=== PATIENT | female | born 1930 | race Caucasian/White ===

== ENCOUNTER → 2018-11-05 13:13 | Day surgery (SDC) | payer MEDICARE ==
[~2018-11-05 13:13] MED LIST: Buffered Lidocaine 0.9% SYRIN* 5 ML/SYR SYRINGE INTRADERM ONE; Lactated Ringers 1000 ML Bag* 1,000 ML IV SCH; Midazolam* 1 MG/ML 5 ML VIAL (5 MG) ONE; Naloxone* 0.4 MG/ML 1 ML VIAL IV PRN; Ondansetron INJ* 2 MG/ML VIAL IV PRN; Propofol* 10 MG/ML 20 ML BTL ONE
[2018-11-05 15:39] VITALS: BP 166/77
--- NOTE | 2018-11-05 20:26 | PRO ---
CC: Dr. Celia Munoz * COLONOSCOPY REPORT: DATE OF PROCEDURE: 11/05/18 - ENDO PRIMARY CARE PHYSICIAN: Dr. Celia Munoz at [facility]. INDICATION FOR PROCEDURE: Abnormal CAT scan, positive FIT test. PROCEDURE PERFORMED: Complete colonoscopy to the cecum. MEDICATIONS GIVEN: Please see Anesthesia record. DESCRIPTION OF PROCEDURE: After the colonoscopy procedure including the risks, benefits, and alternatives with the risks not limited to perforation, surgery, missed lesions, and/or were explained to the patient, written informed consent was obtained. Anesthesia was given by the Anesthesia Service and rectal exam was performed. The rectal exam was unremarkable. The adult Olympus colonoscope was initially inserted to about 30 cm, where there was quite fixed resistance and acute angulation of the sigmoid colon. Despite multiple position changes, I was not able to advance through this area. I then switched to a pediatric colonoscope, and with multiple position changes and assistance with pressure from the nursing staff, we were able to facilitate passage through the sigmoid colon and we were able to rapidly intubate the cecum at that point. The preparation was good. The cecum was carefully inspected and normal in appearance. The terminal ileal valve was identified and normal in appearance. Over the next 10 minutes, the scope was carefully withdrawn, inspecting the mucosa. No mucosal abnormalities were seen. Her colon is quite tortuous and fixed in the sigmoid portion with quite severe diverticulosis coli. The scope was then removed through the rectum. Direct views were normal and retroflexion views were grossly normal as well with grade 1 internal hemorrhoids. The scope was then removed from the patient. She tolerated the procedure well. She returned to the recovery room in stable condition. IMPRESSION: 1. Complete colonoscopy to the cecum. 2. Tortuous and fixed sigmoid colon. 3. Severe left-sided diverticulosis coli. 4. Grade 1 internal hemorrhoids. RECOMMENDATIONS: The thickening noted on CAT scan in the sigmoid colon is just layering from the diverticulosis and tortuosity. I would recommend adding fiber to her diet. No mucosal lesions were seen today. I would recommend against further colonoscopies unless gross symptoms occur. She did have on the CAT scan a 1 cm lesion in the abdominal fat that was concerning for possible carcinoid. She gives no features of carcinoid syndrome. I did order a 5-HIAA urine test and will follow up on the results of that. If that is negative, we would likely consider MR enterography to further evaluate. [id number]/[facility] #: [id number] MTDD
== END | disposition home or self-care (01) ==
LOC: ENDO 13:13 → OR 13:13
PROVIDERS: ATTEND Internal Medicine Gastroenterology
DX: R19.5 Other fecal abnormalities (principal); K57.30 Diverticulosis of large intestine without perforation or abscess without bleeding; K62.5 Hemorrhage of anus and rectum; K63.89 Other specified diseases of intestine; K64.0 First degree hemorrhoids; R93.3 Abnormal findings on diagnostic imaging of other parts of digestive tract; R63.4 Abnormal weight loss; Z79.82 Long term (current) use of aspirin; Z88.8 Allergy status to other drugs, medicaments and biological substances; Z88.1 Allergy status to other antibiotic agents; Z88.0 Allergy status to penicillin; Z88.2 Allergy status to sulfonamides; Z88.5 Allergy status to narcotic agent; Z68.28 Body mass index [BMI] 28.0-28.9, adult
CPT/HCPCS: J2250; J2704

== ENCOUNTER 2019-09-03 05:40 | Inpatient (IN) | payer MEDICARE ==
[~2019-09-03 05:40] MED LIST changes: -Buffered Lidocaine 0.9% SYRIN* 5 ML/SYR SYRINGE INTRADERM ONE; +Buffered Lidocaine 1% SYRIN* 1 ML/SYRINGE INTRADERM ONE; +GENTAMICIN ADULT IVPB SCH; -Lactated Ringers 1000 ML Bag* 1,000 ML IV SCH; -Midazolam* 1 MG/ML 5 ML VIAL (5 MG) ONE; +NS 0.9% IVPB SCH; -Naloxone* 0.4 MG/ML 1 ML VIAL IV PRN; -Ondansetron INJ* 2 MG/ML VIAL IV PRN; -Propofol* 10 MG/ML 20 ML BTL ONE
--- OUTSIDE RECORDS SUMMARY | 2019-09-03 05:45 | XMS REPORT | Continuity of Care Document ---
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 No Information Available Social History Type Date Description Comments Sex Unknown ETOH Use Denies alcohol use Tobacco Use Start: Unknown Patient has never smoked Recreational Drug Use Denies Drug Use Smoking Status Reviewed: 08/04/19 Patient has never smoked Exercise Type/Frequency Exercises sporadically Allergies, Adverse Reactions, Alerts Active Allergies Reaction Severity Comments Date Bystolic 02/08/2019 Cardizem 02/08/2019 Celebrex 02/08/2019 Cipro 02/08/2019 Codeine 02/08/2019 Hydrochlorothiazide 02/08/2019 Metoprolol Tartrate 02/08/2019 Morphine Sulfate 02/08/2019 Penicillin V Potassium 02/08/2019 Sulfadiazine 02/08/2019 Metoprolol 02/08/2019 Vancomycin 02/08/2019 Midazolam 02/08/2019 Medications Active Medications SIG Qnty Indications Ordering Provider Date Advil as needed Unknown 200mg Tablets Immunizations Description No Information Available Vital Signs Date Vital Result Comment 08/04/2019 3:03pm Heart Rate 84 /min Respiratory Rate 16 /min Body Temperature 97.4 F 02/10/2019 3:12pm Height 66 inches 5'6" Weight 163.00 lb Heart Rate 72 /min BP Systolic 138 mmHg BP Diastolic 80 mmHg Respiratory Rate 16 /min Body Temperature 98.7 F BMI (Body Mass Index) 26.3 kg/m2 Results Description No Information Available Procedures Date Code Description Status 11/05/2018 80547272 Colonoscopy Completed Medical Devices Description No Information Available Encounters Type Date Location Provider Dx Diagnosis Office Visit [facility] Digna Del Angel MD R19.00 Intra- abd and 3:15p [facility] pelvic swelling, mass and lump, unsp site R93.3 Abnormal findings on dx imaging of prt digestive tract Assessments Date Code Description Provider 08/04/2019 R19.00 Intra-abdominal and pelvic swelling, mass and lump, Digna Del Angel MD unspecified site 02/23/2019 R19.00 Intra-abdominal and pelvic swelling, mass and lump, Digna Del Angel MD unspecified site 02/10/2019 R19.00 Intra-abd and pelvic swelling, mass and lump, unsp Digna Del Angel MD site 02/10/2019 R93.3 Abnormal findings on dx imaging of prt digestive Digna Del Angel MD tract Plan of Treatment Future Appointment(s):09/30/2019 7:30 am - Noel Arias MD, FACS at [facility]08/04/2019 - Digna Del Angel, MDR19.00 Intra-abdominal and pelvic swelling, mass and lump, unspecified siteFollow up:We will schedule surgery for you, which will be a diagnostic laparoscopy, possible exploratory laparotomy, possible mesenteric mass excision and possible bowel resection. Please return to see me 2 weeks after surgery for a post operative visit. Functional Status Description No Information Available Mental Status Description No Information Available Referrals Description No Information Available
--- OUTSIDE RECORDS SUMMARY | 2019-09-03 05:45 | XMS REPORT ---
:1930 Author Organization [facility] Address [address] [place] [address] Care Team Providers Name Role Phone Christina Hong Unavailable Unavailable PROBLEMS Type Condition ICD9-CM Code DOS07-DW Code Onset Condition SNOMED Code Dates Status Problem Preventive V58.62 Active 003817194 antibiotic ALLERGIES Substance Reaction Event Type Date Status cardizem Unknown Non Drug Allergy Jun, Active hystalic Unknown Non Drug Allergy Jun, Active sulfa Unknown Non Drug Allergy Jun, Active Penicillin Unknown Non Drug Allergy Jun, Active vancomycin Unknown Non Drug Allergy Jun, Active codeine Unknown Non Drug Allergy Jun, Active Morphin Unknown Non Drug Allergy Jun, Active ENCOUNTERS Encounter Location Date Diagnosis [address], [place] [address], [place] [address] [facility] [address], [place] [address] [facility] [address] [place] [address] [facility] [address] [place] [address] [facility] [address] [place] [address] [place] [address] [place] [facility] [place] [address] [place] [address] [facility] [address] [place] [address] Leonico [place] [facility] [address] [facility] [place] [facility] [place] [address] [facility] [address] [place] [address] [facility] [address] [facility] [place] [facility] [place] [address] [facility] [address] [place] [address] [facility] [address], [place] [address] [facility] [address] [place] [address] [facility] [address] [place] [address] [place] [address] [facility] [address] [place] [address] [facility] [address], Apr, [place] [address] [address], [place] [address], [place] [address], [place] [address] IMMUNIZATIONS No Known Immunizations SOCIAL HISTORY Never Assessed REASON FOR REFERRAL FUNCTIONAL STATUS PLAN OF CARE Activity Details Follow Up #11comp Reason: VITAL SIGNS MEDICATIONS Medication Instructions Dosage Frequency Start Date End Date Duration Status Hydrochlorothiazi Not-Taking de-25 mg Clindamycin HCl Active Multivitamin Active Aspirin Adult Low Active Dose PROCEDURES Procedure Date Ordered Result Body Site Caries Risk Assess and Doc High Risk Jul 13, 2019 PROPHYLAXIS - ADULT 13yrs and older Jul 13, 2019 RESULTS No Results REASON FOR VISIT r/s, Recare/ex MEDICAL (GENERAL) HISTORY Type Description Date Medical History 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 Per her Orthopedic DrGaetano she should premedicate for her life time prior to dental visits Medical History High blood pressure Medical History Disc Degeneration Surgical History hip surgery 2003 Surgical History R Knee Surgery 2010 Surgical History L knee Surgery 2011 [facility] Surgical History Caterascs Unknown Surgical History extensive foot Surgery 2009 Hospitalization History from [facility]
--- OUTSIDE RECORDS SUMMARY | 2019-09-03 05:45 | XMS REPORT ---
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 292107268 antibiotic ALLERGIES No Information ENCOUNTERS Encounter Location Date Diagnosis [facility] [address], [place] [address] [facility] [address], [place] [address] [facility] [address], [place], [facility] [facility] [address], [place] [facility] [facility] [address], [place], [facility] [facility] [address], [place], [facility] [facility] [address] [place] [address] [facility] [address] [facility] [address], [place] [address] [facility] [address], [place], [facility] [facility] [address], [place] [address] [facility] [address] [facility] [place], [place] [address] [facility] [address] [place] [address] [place], [place] [address] [facility] [address], [place] [address], [place] [address], [place] [address] [place] [address] [facility] [address], [place] [address] [facility] [address], [place] [address], Apr, [place] [address] [address], [place] [address], [place] [address], [place] [address] IMMUNIZATIONS No Known Immunizations SOCIAL HISTORY Never Assessed REASON FOR REFERRAL FUNCTIONAL STATUS PLAN OF CARE VITAL SIGNS MEDICATIONS Medication Instructions Dosage Frequency Start Date End Date Duration Status Aspirin Adult Low Active Dose Clindamycin HCl Active Hydrochlorothiazi Not-Taking de-25 mg Multivitamin Active PROCEDURES Procedure Date Ordered Result Body Site PERIODIC ORAL EXAMINATION Jul 13, 2019 RESULTS No Results REASON FOR VISIT Periodic exam MEDICAL (GENERAL) HISTORY Type Description Date Medical History 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 Per her Orthopedic Dr. she should premedicate for her life time prior to dental visits Medical History High blood pressure Medical History Disc Degeneration Surgical History hip surgery 2003 Surgical History R Knee Surgery 2010 Surgical History L knee Surgery 2011 Surgical History [facility] 1990 Surgical History Caterascs Unknown Surgical History extensive foot Surgery 2009 Hospitalization History from [facility]
[2019-09-03] MEDS ORDERED: Lactated Ringers 1000 ML Bag* 1,000 ML IV SCH (06:00)
[2019-09-03] MEDS ORDERED: Clindamycin 900 MG/D5W BAG(*) 900 MG/50 ML BAG IVPB ONE (06:23)
[2019-09-03] MEDS ORDERED: Buffered Lidocaine 1% SYRIN* 1 ML/SYRINGE INTRADERM ONE (06:23)
[2019-09-03] MEDS ORDERED: Lidocaine 2% PF* 10 ML AMP ONE (07:13)
[2019-09-03] MEDS ORDERED: Remifentanil* 2 MG VIAL ONE (07:13)
[2019-09-03] MEDS ORDERED: Rocuronium* 10 MG/ML VIAL ONE (07:13)
[2019-09-03] MEDS ORDERED: Propofol* 10 MG/ML 20 ML BTL ONE (07:13)
[2019-09-03] MEDS ORDERED: Bupivacaine 0.25% SDV PF* 10 ML VIAL INJ ONE (07:16)
[2019-09-03] MEDS ORDERED: EPHEDrine (Pressors)* 50 MG/ML VIAL ONE (08:07)
[2019-09-03] MEDS ORDERED: Dexamethasone IV* 4 MG/ML 1 ML (4 MG) ONE (08:07)
[2019-09-03] MEDS ORDERED: HYDROmorphone INJ1* 1 MG/ML SYRINGE ONE ×2 (08:08→10:56)
[2019-09-03] MEDS ORDERED: Acetaminophen IV 1GM/100ML * 100 ML ONE (08:39)
[2019-09-03] MEDS ORDERED: Ondansetron INJ* 2 MG/ML VIAL IV PRN (09:18)
[2019-09-03] MEDS ORDERED: PROCHLORPERAZINE INJ 5 MG/ML 2 ML VIAL IV PRN (09:18)
[2019-09-03] MEDS ORDERED: diPHENhydraMINE IV* 50 MG/ML 1 ml VIAL (BENADRYL) IV PRN (09:18)
[2019-09-03] MEDS ORDERED: Naloxone* 0.4 MG/ML 1 ML VIAL IV PRN (09:18)
[2019-09-03] MEDS ORDERED: Glycopyrrolate IV* 0.2 MG/ML 1 ML VIAL ONE (10:06)
[2019-09-03] MEDS ORDERED: Neostigmine Methylsulfate* 3 MG/3 ML SYRINGE ONE (10:06)
[2019-09-03] MEDS ORDERED: Ondansetron INJ* 2 MG/ML VIAL ONE (10:07)
[2019-09-03] MEDS ORDERED: Metoprolol Tartrate IV* 1 MG/ML 5 ML VIAL ONE ×2 (10:12→10:30)
--- NOTE | 2019-09-03 10:36 | BRIEFOPN ---
Brief Operative/Procedure Note - Operation Details Pre-Op Diagnosis: mesenteric mass Post-Op Diagnosis: small bowel and mesenteric mass Procedures: diagnostic laparoscopic, lap assisted small bowel resection Surgeon(s)/Proceduralists: Ramy Bermudez Anesthesia: GETA Findings: distended, congested distal ileum mass, mesenteric mass Complications: none
[2019-09-03] MEDS ORDERED: HYDROmorphone INJ* 0.5 MG/0.5 ML SYRINGE IV SLOW PU PRN (10:40)
[2019-09-03] MEDS: HYDROmorphone INJ1* 1 MG/ML SYRINGE IV PRN ×5 (10:57→12:22)
[2019-09-03] MEDS: Ketorolac INJ* 15 MG/ML 1 ML VIAL IV PUSH SCH ×3 (11:00→22:19)
[2019-09-03] MEDS: Lactated Ringers 1000 ML Bag* 1,000 ML IV SCH (13:04)
[2019-09-03] MEDS ORDERED: HYDROmorphone INJ* 0.5 MG/0.5 ML SYRINGE ONE (13:40)
--- NOTE | 2019-09-03 13:40 | OP ---
CC: Dr. Lam Torres * DATE OF OPERATION: 09/03/19 - ROOM #339 DATE OF : 32 SERVICE: General Surgery SURGEON: Digna Del Angel MD RN PRIVATE DUTY: Ramy Austin MD ANESTHESIOLOGIST: Rosalva Peters MD ANESTHESIA: General endotracheal anesthesia. PRE-OP DIAGNOSIS: Mesenteric mass. POST-OP DIAGNOSIS: Mesenteric and small bowel mass. OPERATIVE PROCEDURE: Diagnostic laparoscopy and laparoscopic assisted small bowel resection. ESTIMATED BLOOD LOSS: Minimal, less than 10 cc. INTRAOPERATIVE FINDINGS: In the distal ileum there was a long segment of distended hyperemic purplish appearing bowel with a mass identified. The mesentery was tethered posteriorly and contained enlarged, matted lymph nodes. SPECIMENS: Small bowel and mesenteric mass. INDICATIONS FOR SURGERY: Ms. Cheema is a very pleasant 89-year-old female who approximately 1 year ago had incidental finding of a calcified mesenteric mass on the CT scan that has been performed for a acute diverticulitis. She was found during her subsequent evaluation to have mildly elevated Chromogranin A but a normal 24 hour urine 5 HIAA. She underwent IR guided biopsy of the mass but the results were non diagnostic. A colonoscopy showed only diverticulosis and no colonic masses. She was seen by me earlier in this year, but at that time declined surgery since she was feeling fairly well. I saw her last month after serial imaging showed a slight increase in size of the mesenteric mass and some mucosal thickening of a segment of small bowel. She was also having persistent chronic diarrhea as well as intermittent flushing and intermittent abdominal pain. 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 She understood that the risks included but were not limited to bleeding, infection, injury to nearby structures, the possibility of anastomotic leak and general systemic complications from the perioperative period. She understood the alternatives and benefits as well, she wished to proceed with surgery. DESCRIPTION OF PROCEDURE: The patient was brought back to the operating room and placed on the operating table in the supine position. General endotracheal anesthesia was induced and Dr. Peters placed a right arterial line for hemodynamic monitoring. The patient had a Hargrove catheter placed. Her left arm was tucked and her abdomen was prepped and draped in normal sterile fashion. Prior to beginning the procedure, a time-out was performed verifying the patient 's name, date of , and the procedure to be performed. Next, a 0.25% Marcaine was infiltrated in left upper quadrant. A small incision was made at Gregory's point using an 11 blade and then the Veress needle was advanced into the abdominal wall. A saline drop test was performed that confirmed that the Veress needle was intraabdominal and insufflation was then obtained to 15 mmHg. Next, a small 5 mm incision was made in the left upper quadrant and the abdomen was entered using the Optiview technique and a 5 mm trocar. Once the abdomen was entered with the 5 mm trocar, a general inspection of the abdominal cavity showed that there was no injury that was made upon entry. The Veress needle was noted in place and was removed. Next, 2 additional 5 mm trocars were placed under direct visualization after administering local anesthesia, one was placed just above the umbilicus and another was placed in the left lower quadrant. A general inspection of the abdominal cavity showed immediately that there was a congested, purplish, distended loop of bowel in the anterior abdomen. This was clearly the abnormal segment of bowel that was seen on her last CT scan. She had had a prior cholecystectomy. She did not have any gross mesenteric or peritoneal masses. The cecum was identified. The appendix appeared to be grossly normal and the terminal ileum was then identified and then the bowel was run laparoscopically towards the ligament of Treitz. The abnormal small bowel was encountered in the distal ileum. There was clearly a small bowel mass in the area where the bowel seem to be tethered to the mesentery. The decision was then made to extract the bowel, then perform a bowel resection, and to run the bowel more thoroughly using direct palpation. A small periumbilical incision was made. The skin was divided down to the subcutaneous tissue. The midline fascia was identified and divided and the incision was carried approximately 2 cm above and below the umbilicus. A large wound protector was placed in the abdomen and the abnormal bowel was extracted with some difficulty given how large the small bowel mesenteric mass was. But eventually the entire abnormal bowel with its adjacent tethered mesentery was delivered out of the abdomen and examined very carefully. There was an area of possible desmoplastic reaction around the mesentery. It did appear to have enlarged palpable lymph nodes at this area and the small bowel mass was easily palpable. At this point, the small bowel resection was performed. The distal and proximal ends of the resection were selected at sites where the bowel appeared to be grossly normal. At the distal site, a window was made in the mesentery and an 80 mm endo-BARBI blue load stapler was used to staple the small bowel. In a similar fashion, the proximal site was selected and an additional 80 mm endo-BARBI stapler was used to staple across the site. Next, the mesentery was divided with great care, given how deep the mesenteric mass and enlarged lymph node seem to extend posteriorly towards the base of the mesentry. The Impact LigaSure was used to divide the mesentery down to a pedicle point where the bulkiest lymph nodes were contained. At this point, the mesentery was clamped with the Michelle and the mesentery was completely divided and the small bowel and mesenteric mass were handed off as specimen. The mesentery was oversewn using a 3-0 silk suture and attention was then turned towards the remaining small bowel. There was a slightly dusky area at the proximal small bowel that did improve however, approximately 2cm of additional bowel was resected at the proximal and distal ends. Next, the bowel was run in its entirety by palpation. The distal bowel was palpated and there were no intraluminal masses identified. The appendix was also visualized together and appeared to be completely normal. The proximal bowel was run all the way to the terminal ileum and there were no palpable small bowel masses. Attention was then turned towards performing the small bowel anastomosis in the standard [id number] and functional end-to-end anastomosis. The proximal distal ends were aligned and the mesentery was confirmed to be straight with no twist in it. The back wall of the future anastomosis was oversewn using a 3-0 silk suture. Two small enterotomies were made and another 80 mm Endo BARBI stapler was used to create the common channel. The common enterotomy was then closed using an additional 80 mm Endo BARBI blue load. The staple lines were oversewn using running 3-0 silk sutures. The large mesenteric defect was closed using a running 3- 0 Vicryl suture. The anastomosis was palpated that was widely patent before closure. The staple line was examined and was hemostatic. At this point, the small bowel was placed back into the abdominal cavity. The wound protector was removed and attention was turned towards closure. Of note, after performing the bowel anastomosis the dirty instruments were removed and all of our gloves were changed. There was a small defect in the umbilical stalk that was closed using a 3-0 Vicryl suture and then at this point, the fascia was closed using running 0 PDS sutures and then the skin was closed using agapito. The 2 left lateral 5 mm laparoscopic incisions were closed using 4-0 Monocryl suture after removing the trocars. Sterile dressing was then placed. The patient's anesthesia was reversed. Her Hargrove catheter was removed and she was taken to the PACU in stable condition. At the end of the case all counts were correct and I was present during the entirety of the case. [id number] #: [id number] MTDOpal
[2019-09-03] MEDS: Ondansetron INJ* 2 MG/ML VIAL IV PRN (17:09)
[2019-09-03] MEDS: Heparin VIAL(*) 5000 UNITS/ML VIAL (FIVE THOUSAND) SUBCUT SCH (22:20)
[2019-09-04] MEDS: Lactated Ringers 1000 ML Bag* 1,000 ML IV SCH (02:10)
[2019-09-04] MEDS: Ketorolac INJ* 15 MG/ML 1 ML VIAL IV PUSH SCH ×2 (04:43→10:29)
[2019-09-04] MEDS: Ondansetron INJ* 2 MG/ML VIAL IV PRN (05:02)
[2019-09-04 05:50] LABS: ABS Lymphocytes 1.5 10^3/ul (1.0-4.8); ABS Neutrophils 8.7 10^3/ul (1.5-7.7); Hematocrit 37 % (35-47); Lymphocyte % 13.7 %; Mean Corpuscular HGB Conc 33 g/dL (31-36); Mean Corpuscular Hemoglobin 30 pg (27-31); Mean Corpuscular Volume 91 fL (80-97); Mean Platelet Volume 8.9 fL (7.4-10.4); Nucleated Red Blood Cells % 0.1; Platelet Count 188 10^3/uL (150-450); Red Blood Count 4.07 10^6 /uL (3.70-4.87); Red Cell Distribution Width 14 % (10-15); White Blood Count 11.2 10^3/uL (3.5-10.8)
[2019-09-04 06:06] LABS: Calcium 9.1 mg/dL (8.6-10.3); EGFR African American 63.3 (>60); EGFR Non-African American 52.3 (>60); Potassium 4.2 mmol/L (3.5-5.0)
[2019-09-04] MEDS: Heparin VIAL(*) 5000 UNITS/ML VIAL (FIVE THOUSAND) SUBCUT SCH ×2 (08:28→20:50)
--- NOTE | 2019-09-04 11:58 | PN ---
Progress Note - Progress Note Date of Service: 09/04/19 SOAP: Subjective: Pt seen and examined. Feeling well. appetite. no flatus, some burping Pt has voided w/o difficulty Objective: Temp Pulse Resp BP Pulse Ox 98.6 F 65 16 110/47 96 09/04/19 11:36 09/04/19 11:36 09/04/19 11:36 09/04/19 11:36 09/04/19 11:36 Intake & Output 09/03/19 09/04/19 09/04/19 22:59 06:59 14:59 Intake Total 0 990 Balance 0 990 a and o x3 lungs clear abdo: soft/ ND/ incisional tenderness, dressing intact, no redness ext wnl labs noted Assessment: POD 1 SB resection. HD stable Plan: ice chips only for now OOB Incentive spiromter
[2019-09-04] MEDS: D5W 1/2 NS 1000 ML BAG* 1,000 ML IV SCH (12:17)
[2019-09-04] MEDS ORDERED: Ibuprofen TAB* 400 MG PO PRN (14:58)
[2019-09-04] MEDS ORDERED: diPHENhydraMINE IV* 50 MG/ML 1 ml VIAL (BENADRYL) IV ONE (15:00)
[2019-09-05 01:30] LABS: Urine Appearance Clear; Urine Bacteria 1+ (Absent); Urine Bilirubin Negative (Negative); Urine Blood 1+ (Negative); Urine Color Yellow; Urine Glucose Negative (Negative); Urine Ketones Negative (Negative); Urine Nitrite Negative (Negative); Urine Protein Negative (Negative); Urine Red Blood Cell Trace(0-2/hpf) (Absent); Urine Squamous Epithelial Cell Present (Absent); Urine Urobilinogen Negative (Negative); Urine White Blood Cell Trace(0-5/hpf) (Absent)
[2019-09-05] MEDS: D5W 1/2 NS 1000 ML BAG* 1,000 ML IV SCH (01:33)
[2019-09-05] MEDS: Heparin VIAL(*) 5000 UNITS/ML VIAL (FIVE THOUSAND) SUBCUT SCH ×2 (08:55→21:31)
--- NOTE | 2019-09-05 10:20 | PN ---
Progress Note - Progress Note Date of Service: 09/05/19 SOAP: Subjective: Pt seen and examined. Feeling well. appetite. some flatus, some burping Pt has voided multiple times overnight. UA pos blood, neg nitrates Objective: Temp Pulse Resp BP Pulse Ox 99.3 F 79 16 145/55 96 09/05/19 07:24 09/05/19 07:24 09/05/19 08:00 09/05/19 07:24 09/05/19 07:24 Intake & Output 09/04/19 09/05/19 09/05/19 22:59 06:59 14:59 Intake Total 990 Output Total 150 90 Balance -150 900 urione likely not fully documented a and o x3 lungs clear abdo: soft/ ND/ NT, dressing removed. mild redness at umbilicus, good BS ext wnl no new labs Assessment: POD 2 SB resection. HD stable Plan: Full liquid OOB Incentive spirometer d/c planning
[2019-09-05] MEDS: Bacitracin OINTMENT* 0.5% 0.5 oz TUBE TOPICAL SCH (12:46)
[2019-09-05] MEDS: Ondansetron INJ* 2 MG/ML VIAL IV PRN (23:07)
[2019-09-06 05:10] LABS: ABS Eosinophils 0.2 10^3/ul (0-0.6); ABS Lymphocytes 1.5 10^3/ul (1.0-4.8); ABS Monocytes 0.9 10^3/ul (0-0.8); ABS Neutrophils 4.6 10^3/ul (1.5-7.7); Eosinophil % 2.7 %; Hematocrit 33 % (35-47); Lymphocyte % 20.3 %; Mean Corpuscular HGB Conc 34 g/dL (31-36); Mean Corpuscular Hemoglobin 30 pg (27-31); Mean Corpuscular Volume 90 fL (80-97); Mean Platelet Volume 8.9 fL (7.4-10.4); Nucleated Red Blood Cells % 0.1; Platelet Count 151 10^3/uL (150-450); Red Blood Count 3.61 10^6 /uL (3.70-4.87); Red Cell Distribution Width 14 % (10-15); White Blood Count 7.2 10^3/uL (3.5-10.8)
[2019-09-06 05:32] LABS: BUN/Creatinine Ratio 14.3 (8-20); Calcium 8.9 mg/dL (8.6-10.3); EGFR African American 85.6 (>60); EGFR Non-African American 70.7 (>60); Magnesium 1.4 mg/dL (1.9-2.7); Phosphorus 3.1 mg/dL (2.5-5.0); Potassium 3.6 mmol/L (3.5-5.0)
[2019-09-06 07:57] VITALS: BP 131/47
[2019-09-06] MEDS: Heparin VIAL(*) 5000 UNITS/ML VIAL (FIVE THOUSAND) SUBCUT SCH (08:55)
[2019-09-06] MEDS: Bacitracin OINTMENT* 0.5% 0.5 oz TUBE TOPICAL SCH (08:55)
--- NOTE | 2019-09-06 09:12 | PN ---
Progress Note - Progress Note Date of Service: 09/06/19 Note: S: POD #3. Doing well. Denies pain ("sore" only). Agnes full liqs. Passing flatus ; no BM yet. Ambulating. O: Vital Signs - 8 hr 09/06/19 09/06/19 09/06/19 03:52 07:56 08:00 Temperature 98.6 F 98.9 F Pulse Rate 77 87 Respiratory 16 16 18 Rate Blood Pressure 144/60 131/47 (mmHg) O2 Sat by Pulse 94 93 Oximetry Intake and Output Last 24 Hours 09/04/19 09/05/19 09/06/19 09/07/19 06:59 06:59 06:59 06:59 Intake Total 2240 1740 1118 300 Output Total 100 240 650 150 Balance 2140 1500 468 150 Intake: IV Fluids 2240 1740 638 CLINDAMYCIN 900MG 50 D5W 1/2 NS 990 638 GENTAMYCIN 312MG 100 LR 2090 750 Oral 0 480 300 Output: Urine 240 650 150 Hargrove 100 Other: Estimated Void Small Small Small Medium # Voids 1 1 1 Gen: sitting at edge of bed; appears comfortable Heart: reg Lungs: clear ant and to bases Abd: lap sites ok; umb incision w/ small amt of erythema at right side w/ possible early blistering (skin burn vs tape?); nontender; soft. A: s/p lap assisted SB rsxn (path pend), doing well P: discussed w/ Dr. Bailey. Ready for d/c home. She will continue to advance diet gradually at home over the next couple of days. Office f/u 1 wk (she will call). Wound care and activity instructions reviewed.
--- NOTE | 2019-09-06 11:32 | DS ---
CC: Dr. Celia Munoz* DATE OF ADMISSION: 09/03/2019. DATE OF DISCHARGE: 09/06/2019. ATTENDING SURGEON: Dr. Digna Del Angel * (dictated by BLAKE Rizvi). HOSPITAL COURSE: Please refer to admission history and physical and operative note for details. The patient was taken to the operating room on 09/03/2019 and underwent laparoscopic assisted small bowel resection. Pathology is still pending. She has had an uneventful postoperative course and as of the day of discharge is tolerating full liquids and having little to no pain. She has not required any analgesics in the past 24 hours. For exam, see separate progress note from the same date. She is deemed ready for discharge. Instructions were reviewed regarding wound care, diet and activity. There is a small area of erythema to the right of the umbilical incision which may have been from either tape or skin burn. This will be monitored by her daughter who will apply over- the-counter antibiotic ointment once a day. She will return in the office in approximately one week with Dr. Del Angel and they will call for that appointment. She is discharged to home in good condition. BLAKE RIZVI [id number]/[facility] #: [id number] MTDOpal
== END 2019-09-06 10:20 | disposition home or self-care (01) | DRG 349 ==
LOC: AA 05:40 → SSU 10:40
PROVIDERS: ADMIT Surgery; ATTEND Surgery
PROC: 0DBB4ZZ Excision of Ileum, Percutaneous Endoscopic Approach (ICD-10-PCS; principal; 2019-09-03 07:30)
DX: R19.09 Other intra-abdominal and pelvic swelling, mass and lump (principal); I10 Essential (primary) hypertension; K57.90 Diverticulosis of intestine, part unspecified, without perforation or abscess without bleeding; Z96.653 Presence of artificial knee joint, bilateral; Z96.642 Presence of left artificial hip joint; R19.7 Diarrhea, unspecified; K44.9 Diaphragmatic hernia without obstruction or gangrene; F41.9 Anxiety disorder, unspecified; Z79.1 Long term (current) use of non-steroidal anti-inflammatories (NSAID); Z88.0 Allergy status to penicillin; Z88.5 Allergy status to narcotic agent; Z88.1 Allergy status to other antibiotic agents; Z88.2 Allergy status to sulfonamides; Z88.8 Allergy status to other drugs, medicaments and biological substances; Z80.9 Family history of malignant neoplasm, unspecified
CPT/HCPCS: 36415; 80048; 81003; 81015; 83735; 84100; 85025; 87086; 88307; 88309; 88341; 88342; 88360; A9270-GY; C1776; J1100; J1170; J1200; J1580; J1644; J1885; J2001; J2405; J2704; J2710; J3490